=== PATIENT | male | born 1995 | race African-American/Black ===

== ENCOUNTER 2019-06-07 11:23 | Emergency (ER) | payer BC ==
[~2019-06-07] VITALS: Ht 180.3 cm; Wt 83.9 kg
[2019-06-07 11:23] VITALS: BP_SYST 129
--- NOTE | 2019-06-07 11:23 | NUR ---
BROUGHT IN BY [facility], PLACED IN BED #1, TRIAGED. REPORT GIVEN TO DANYEL
--- NOTE | 2019-06-07 11:25 | NUR ---
Patient BIB BLS for witnessed seizure. Patient ambulatory to ER, A&Ox4, answer questions, afebrile, skin pink & warm, pain 08/10, denies N/V/D. 18 G PIV left AC. Patient sleeping, awake and alert to voice. Pt placed on cardiac and Pulse-ox monitor. Per Medic patient had 5 witnessed seizures at [facility], 1 seizure in route, gave 5 versed IM and started PIV.
--- NOTE | 2019-06-07 11:28 | NUR ---
ER Dr. Ramsey at bedside examining patient.
--- NOTE | 2019-06-07 11:37 | NUR ---
Per PT, placed call to Jerman re: ER admission & to notify mother of PT.
--- NOTE | 2019-06-07 12:15 | NUR ---
MOTHER OF PATIENT AT BEDSIDE
--- NOTE | 2019-06-07 12:38 | NUR ---
Pt resting, no seizure activity noted at this time, will cont to monitor.
[2019-06-07 13:15] LABS: CALCIUM 8.1 mg/dL (8.4-11.0); CREATININE 1.04 mg/dL (0.55-1.30); POTASSIUM 3.7 mmol/L (3.5-5.1)
--- NOTE | 2019-06-07 13:15 | NUR ---
MOTHER OF PATIENT REQUEST A EEG, BLOOD GLUCOSE AND UDS, MADE DR. WILSON AWARE.
[2019-06-07 13:20] LABS: ALBUMIN 3.7 g/dL (3.4-4.8); PHENYTOIN (DILANTIN) 11.1 ug/mL (10.0-20.0); TOTAL BILIRUBIN 0.3 mg/dL (0.0-1.0)
[2019-06-07] MEDS ORDERED: PHENYTOIN 100 MG CAPSULE PO ONE (13:30)
[2019-06-07] MEDS ORDERED: PHENYTOIN 100 MG CAPSULE ONE (13:49)
--- NOTE | 2019-06-07 14:20 | NUR ---
ER at bedside discussing results with mother of patient & patient.
[2019-06-07 14:23] LABS: BARBITURATE, URINE POSITIVE (NEG <=200); BENZODIAZEPINE, URINE NEGATIVE (NEG <=150); CANNABINOID, URINE NEGATIVE (NEG <=50); COCAINE, URINE NEGATIVE (NEG <=150); METHAMPHETAMINES SCREEN,URINE NEGATIVE (NEG <=500); OPIATE, URINE NEGATIVE (NEG <=100); PHENCYCLIDINE SCREEN,URINE NEGATIVE (NEG <=25); UR TRICYCLIC ANTIDEPRESSANTS NEGATIVE (NEG <=300); URINE AMPHETAMINE NEGATIVE (NEG <=500); URINE METHADONE NEGATIVE (NEG <=200); URINE OXYCODONE SCREEN NEGATIVE (NEG <=100); URINE PROPOXYPHENE SCREEN NEGATIVE (NEG <=300)
[2019-06-07 14:37] VITALS: BP_SYST 120
== END 2019-06-07 14:37 | disposition home or self-care (01) ==
LOC: SED 11:23
DX: R56.9 Unspecified convulsions (principal)
CPT/HCPCS: 36415; 80053; 80185-TC; 80307; 99283

== ENCOUNTER 2019-06-08 12:06 | Emergency (ER) | payer BC ==
[~2019-06-08] VITALS: Ht 180.3 cm; Wt 79.4 kg
[2019-06-08 12:06] VITALS: BP_SYST 124
--- NOTE | 2019-06-08 12:06 | NUR ---
BROUGHT IN BY [facility] FROM [facility], PLACED IN BED #1 AND TRIAGED. REPORT GIVEN TO YORDAN
--- NOTE | 2019-06-08 12:10 | NUR ---
BROUGHT IN VIA AMBULANCE POST SEIZURE. PT HAS IV IN L AC, ASLEEP, RESTING IN BED AWAITING MD.
--- NOTE | 2019-06-08 12:15 | NUR ---
ER at bedside examining patient.
[2019-06-08] MEDS ORDERED: levETIRAcetam 500 MG IV PREMIX 100 ML IV ONE (12:45)
[2019-06-08 12:56] LABS: EOSINOPHILS # (AUTO) 0.1 K/uL (0.0-0.4); HEMATOCRIT 42.6 % (36-54); HEMOGLOBIN 14.4 g/dL (14.0-18.0); LYMPHOCYTES # (AUTO) 0.7 K/uL (1.0-5.5); LYMPHOCYTES % (AUTO) 22.6 % (20.5-51.5); MEAN CORPUSCULAR HEMOGLOBIN 32 pg (27-31); MEAN CORPUSCULAR HGB CONC 34 % (32-36); MEAN CORPUSCULAR VOLUME 96 fL (79.0-98.0); MONOCYTES # (AUTO) 0.4 K/uL (0.0-1.0); MONOCYTES % (AUTO) 11.3 % (1.7-9.3); PLATELET COUNT (AUTO) 232 K/uL (130-430); RED BLOOD CELL COUNT(AUTO) 4.43 MIL/uL (4.2-6.2); RED CELL DISTRIBUTION WIDTH 12.4 % (9.0-15.0); WHITE BLOOD COUNT (AUTO) 3.2 K/uL (4.8-10.8)
--- NOTE | 2019-06-08 13:05 | NUR ---
PT AMA, WAS EEDUCATED ABOUT RISKS AND BENEFITS. PT SAID HE HAD AN APPOINTMENT WITH HIS NEUROLOGIST TODAY AND WOULD NOT MISS IT. AMA PAPERWORK SIGNED AND PT RELEASED.
[2019-06-08 13:10] LABS: CALCIUM 8.1 mg/dL (8.4-11.0); CREATININE 0.92 mg/dL (0.55-1.30); POTASSIUM 4.1 mmol/L (3.5-5.1)
[2019-06-08 13:15] LABS: ALBUMIN 3.6 g/dL (3.4-4.8); TOTAL BILIRUBIN 0.3 mg/dL (0.0-1.0)
[2019-06-08 13:21] LABS: BASOPHILS % (AUTO) 0.1 % (0.0-2.0)
[2019-06-08 13:44] VITALS: BP_SYST 124
== END 2019-06-08 13:05 | disposition home or self-care (01) ==
LOC: SED 12:06
DX: G40.909 Epilepsy, unspecified, not intractable, without status epilepticus (principal)
CPT/HCPCS: 36415; 80053; 85025; 99283; J1953